=== PATIENT | male | born 2000 | race African-American/Black ===

== ENCOUNTER 2024-12-16 07:30 | Emergency (ER) | payer SELFPAY ==
[2024-12-16] MEDS ORDERED: NA CHLORIDE 0.9% 1,000 ML ONE (08:11)
[2024-12-16 09:07] LABS: Urine Microscopic Reflex YN NO UMIC
[2024-12-16 09:09] LABS: Absolute Lymphocytes (CBC) 1.5 K/uL (0.7-4.9); Hematocrit 44.9 % (39.6-49.0); Hemoglobin 15.2 g/dL (13.6-17.9); MCH 31.4 pg (27.0-35.0); MCHC 33.9 g/dL (32.0-36.0); MCV 92.5 fL (80-100); MPV 8.0 fL (7.6-11.3); Nucleated RBC Absolute Count 0.0 (0-0); Nucleated Red Blood Cells % 0.2 % (0-0); RBC Red Blood Cell Count 4.85 M/uL (4.33-5.43); White Blood Count 5.30 thou/uL (4.3-10.9)
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
[2024-12-16 09:16] LABS: PT Prothrombin Time 12.8 SECONDS (10-13.0); PTT, Activated Partial Thromb 27.5 SECONDS (27.2-37.4); Protime INR 1.14
[2024-12-16 09:27] LABS: ALT/SGPT 48 U/L (16-61); AST/SGOT 37 U/L (15-37); Albumin 4.5 g/dL (3.4-5.0); Albumin/Globulin Ratio 1.3 (1.1-1.8); Alkaline Phosphatase 88 U/L (45-117); Anion Gap 9.9 mEq/L (5.0-15.0); BUN Blood Urea Nitrogen 17 mg/dL (7-18); Bilirubin Indirect, Calculated 0.3 mg/dL (0.2-0.8); Globulin 3.5 g/dL (2.3-3.5); Glucose Level 80 mg/dL (74-106); Potassium 3.9 mEq/L (3.5-5.1)
[2024-12-16 10:06] LABS: METHAMPHETAM NEGATIVE (NEGATIVE); THC Cannibis POSITIVE (NEGATIVE)
[2024-12-16 10:10] VITALS: TEMP 97.7
[2024-12-16 10:13] VITALS: BP 142/86; O2SAT 100
== END 2024-12-16 10:06 | disposition home or self-care (01) ==
LOC: ER 07:30
DX: T76.11XA Adult physical abuse, suspected, initial encounter (principal)
CPT/HCPCS: 36415; 80048; 80076; 80143; 80179; 80307; 81003; 82077; 85025; 85610; 85730; 93005; 96360; 99284; J7030